=== PATIENT | male | born 1975 | race Two or more races ===

== ENCOUNTER 2024-05-09 01:35 | Emergency (ER) | payer OTHER ==
[~2024-05-09] VITALS: Ht 185.4 cm; Wt 92.1 kg
[2024-05-09] MEDS ORDERED: FAMOTIDINE/PF 20 MG in 0.9 % SODIUM CHLORIDE 8 ML IV PUSH STA (02:33)
[2024-05-09] MEDS ORDERED: ONDANSETRON HCL 2 MG/ML VIAL ONE (02:39)
[2024-05-09] MEDS ORDERED: KETOROLAC TROMETHAMINE 30 MG VIAL ONE (02:39)
[2024-05-09] MEDS ORDERED: FAMOtidine 200mg/20ml VIAL ONE (02:39)
[2024-05-09] MEDS ORDERED: KETOROLAC TROMETHAMINE 30 MG VIAL IV ONE (02:45)
[2024-05-09] MEDS ORDERED: ONDANSETRON HCL 2 MG/ML VIAL IV ONE (02:45)
[2024-05-09 03:16] LABS: HEMATOCRIT 40.3 % (39.0-48.0); MEAN CORPUSCULAR HEMOGLOBIN 29.9 pg (27.00-32.0); MEAN CORPUSCULAR HGB CONC 34.8 g/dl (32.0-36.0); PLATELET COUNT 198 K/uL (150-450); RED BLOOD COUNT 4.68 M/uL (4.00-6.00); RED CELL DISTRIBUTION WIDTH 13.4 % (11.5-14.5)
[2024-05-09 03:29] LABS: ALBUMIN 3.8 gm/dL (3.4-5.0); BILIRUBIN TOTAL 0.38 mg/dL (0.3-1.2); BILIRUBIN,CONJUGATED 0.11 mg/dL (0.0-0.2); BILIRUBIN,UNCONJUGATED 0.27 mg/dL (0.0-0.6); CALCIUM 9.4 mg/dL (8.5-10.1); CREATININE SERUM 0.89 mg/dL (0.70-1.30); GFR 91.23; GLOBULINA 3.2 G/DL (2.4-3.5); POTASSIUM 3.38 mEq/L (3.5-5.1)
[2024-05-09] MEDS ORDERED: LEVSIN/SL0.125 MG SL (05:52)
[2024-05-09] MEDS ORDERED: PEPCID AC20 MG PO (05:52)
== END 2024-05-09 05:53 | disposition home or self-care (01) ==
LOC: ER 01:36
PROVIDERS: General Practice
DX: K80.20 Calculus of gallbladder without cholecystitis without obstruction (principal)